=== PATIENT | female | born 1985 | race Two or more races ===

== ENCOUNTER 2018-12-30 17:12 | Emergency (ER) | payer OTHER ==
[~2018-12-30] VITALS: Ht 180.3 cm; Wt 74.8 kg
== END 2018-12-30 19:57 | disposition home or self-care (01) ==
LOC: ER 17:12
DX: M94.0 Chondrocostal junction syndrome [Tietze] (principal)

== ENCOUNTER 2019-08-19 16:12 | Emergency (ER) | payer OTHER ==
[~2019-08-19] VITALS: Ht 180.3 cm; Wt 74.8 kg
[2019-08-19] MEDS ORDERED: DOLOGEN CAPLET1 EACH PO (17:26)
== END 2019-08-19 17:33 | disposition home or self-care (01) ==
LOC: ER 16:12
DX: M94.0 Chondrocostal junction syndrome [Tietze] (principal)